=== PATIENT | female | born 1995 | race Caucasian/White ===

== ENCOUNTER 2019-04-03 12:29 | Outpatient (REF) | payer MEDICAID, SELFPAY ==
--- NOTE | 2019-04-03 10:05 | PAPFT_PTH ---
PATIENT: SHOBHA JUÁREZ LOC: [facility] U#:[id number] AGE/SX: 23/F ROOM: RE04/03/[address]: Salbador Herrera MD : [id number] BED: DIS: 04/03/2019 SPEC #: [id number] RECD: 04/03/19 13:02 STATUS: GODFREY ALFARO #: [id number] AAKASH: 04/03/19 10:[address]: Salbador Herrera DEPT: [facility] Cytology RECD BY: Columba Neumann ENTERED: 04/03/19 13:02 SP TYPE: PAPFT OT DR: None Tissues: 1 - CX/ENDOCX FOR PAP SMEARS Procedures: PAP THIN PREP/U[facility] Screening Comments: [id number] (CHLAMYDIA/GC)
[2019-04-06 15:47] LABS: Chlamydia Result Negative; GC Result Negative; Specimen Description SEE COMMENTS
== END 2019-04-03 12:49 ==
LOC: LBN 12:29
PROVIDERS: Visit Provider Obstetrics & Gynecology
DX: Z11.3 Encounter for screening for infections with a predominantly sexual mode of transmission (principal); Z12.4 Encounter for screening for malignant neoplasm of cervix; Z11.51 Encounter for screening for human papillomavirus (HPV)
CPT/HCPCS: 87491; 87591; 88142

== ENCOUNTER 2019-04-04 23:33 | Emergency (ER) | payer MEDICAID, SELFPAY ==
[2019-04-04 23:42] VITALS: BP 102/76; PULSE 77; RESP 18; TEMP 36.4; O2SAT 98
--- NOTE | 2019-04-05 00:01 | W.ED.GENAD ---
Discharge Plan Disposition Patient Disposition: HOME Condition: Good Discharge Details Chief Complaint: GenMedical Clinical Impression: Cellulitis of hand, right Primary Care Provider: None,None ED Provider: Raciel Felix Home Meds and New Rx's Prescriptions: New clindamycin HCl 150 mg capsule 450 mg PO TID 10 Days Qty: 90 RF: 0 acetaminophen [Mapap Extra Strength] 500 MG tablet 1,000 mg PO Q6H 5 Days Qty: 60 RF: 0 ibuprofen [Motrin IB] 200 MG tablet 600 mg PO Q6H 5 Days Qty: 60 RF: 0 No Action buprenorphine-naloxone [Suboxone] 4-1 mg Film 1 film SUBLINGUAL DAILY RF: 0 Discharge Instructions Instructions: Cellulitis (ED) Additional Instructions: At this time you do have mild cellulitis in your right hand, however you do not show the signs of sepsis or severe cellulitis requiring IV antibiotics. Please take the antibiotic as directed. Please make sure you are taking it with yogurt with live culture to prevent any diarrhea. Take the Tylenol and Motrin as directed for pain control. If you notice any worsening of your symptoms or any symptoms that we discussed concerning your fingers, or any new symptoms such as vomiting, diarrhea, fever, chills, shortness of breath, chest pain, numbness, weakness, or fainting , please return immediately to the emergency department for reevaluation. Please follow up with your primary care provider as soon as possible for reassessment and reevaluation. As always, it was a pleasure participating in your medical care today. Referrals: Evelina To [Emergency Nurse] - Medical Decision Making This is a pleasant 23-year-old female who presents today for evaluation of swelling, redness and mild warmth on her right hand. Primarily over the fifth digit in her right hand. She is left-hand dominant. She states that 2 years ago she had notable cellulitis and sepsis in her left hand, and although the symptoms are nowhere near that previous experience today, she states that she wants to take care of the symptoms early. Exam demonstrates no clinical evidence of flexor or extensor tenosynovitis in all 5 digits. No sausage shaped digits, no pain out of proportion. Signs and symptoms do appear consistent with mild cellulitis. She denies any recent IV or illicit drug use for the last 2 years. However because of her past I do feel that she does have risk factors for MRSA. Because of this we will start the patient on clindamycin, recommend Tylenol and Motrin, as well as close follow-up. She does not have a PCP here and so I did recommend that she come back in the next few days for reassessment and recheck. I have extensively reviewed the treatment plan and discharge instructions with the patient and their family. I have addressed all patient concerns at this time. The patient and family was made aware of what symptoms to monitor for that would warrant a return to the emergency department. Discussed the plan with the patient and family, they demonstrate verbal understanding and agreement with our assessment and plan at this time. HPI General Date/Time Provider Initiated Documentation: 04/04/19 23:35. HPI Narrative: This is a 23-year-old female who presents today for evaluation of pain and swelling in her right hand. She is left-hand dominant. Patient states that the swelling began roughly 24 to 48 hours ago. Is been associated with mild warmth and redness. She has mild pain in the hand, particularly over the fifth digit. She denies any fever. She has not taken any NSAIDs recently. She states that she did have cellulitis in her left hand 2 years ago, which did eventually require admission and IV antibiotics. She states that it is not as bad as that time, and she states that she wants to get it taken care of early. 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 She denies any recent IV or illicit drug use. Patient has no other complaints at this time. She denies any recent trauma. She has not been on any antibiotics recently. Related Data Home Medications Medication Instructions Recorded Confirmed buprenorphine-naloxone [Suboxone] 1 film SUBLINGUAL DAILY 04/04/19 04/04/19 acetaminophen [Mapap Extra 1,000 mg PO Q6H 5 Days #60 tab 04/05/19 Strength] clindamycin HCl 450 mg PO TID 10 Days #90 cap 04/05/19 ibuprofen [Motrin Ib] 600 mg PO Q6H 5 Days #60 tab 04/05/19 Previous Rx's Medication Instructions Recorded acetaminophen [Mapap Extra 1,000 mg PO Q6H 5 Days #60 tab 04/05/19 Strength] clindamycin HCl 450 mg PO TID 10 Days #90 cap 04/05/19 ibuprofen [Motrin Ib] 600 mg PO Q6H 5 Days #60 tab 04/05/19 Allergies Allergy/AdvReac Type Severity Reaction Status Date / Time No Known Allergies Allergy Verified 04/04/19 23:50 General Stated Complaint: GenMedical BRIAN: 3 Review of Systems All systems reviewed & are unremarkable except as noted in HPI and below PFSH Social History Smoking/Tobacco Use Status: Current every day Tobacco Type: cigarettes Tobacco: How many years used: 8 Quit status: not considering quitting Alcohol Intake: current Alcohol Intake frequency: holidays/special occasions only Drug use: Current Sobriety Substance use type: former substance user Details: no iv drugs in 2 years Do you feel safe at home: Yes Do you feel safe in your relationship?: Yes History History 5 Para 4 Hx # Term Pregnancies 4 Multiple births Hx # Pregnancies Ectopic pregnancies AB induced Hx Number of Living Children 4 AB spontaneous 1 Exam Narrative Exam Narrative: 1.Const: Well-nourished, Well-developed, appearing stated age 2.Eyes: PERRL, no conjunctival injection, and symmetrical lids. 3.ENT: Atraumatic external nose and ears. Moist MM. Neck: Symmetric, trachea midline, No thyromegaly. 4.CVS: +S1/S2, No murmurs or gallops. Peripheral pulses 2+ and equal in all extremities. Brisk capillary refill in all extremities. 5.RESP: Unlabored respiratory effort. Clear to auscultation bilaterally. No wheezes rales or rhonchi 6.GI: Soft, Nontender/Nondistended, No hepatosplenomegaly. No guarding or rebound. 7.MSK: Right hand: Patient's right and left hands are both mildly edematous which the patient states is chronic baseline for her that occurred after she was using her IV drugs in the past. Patient's right hand demonstrates mild swelling of the hand throughout, fairly equivalent with the left hand. There is mild redness around the dorsal aspect of the hand, primarily around the fifth digit. Minimal swelling but no evidence of sausage shaped digit. Minimal pain with movement of the fifth finger, but no pain out of proportion, no evidence of severe pain with passive or active flexion or extension of the 5 digits. Symptoms at this time are clinically inconsistent with flexor tenosynovitis or extensor tenosynovitis. Normal sensation throughout. Brisk capillary refill throughout. Left hand: Mildly edematous which the patient states is chronic baseline. No other significant abnormality. 8.Skin: Warm, Dry. No rashes or lesions. Please see musculoskeletal for description of skin 9.Neuro: applications analyst II-XII grossly intact. Sensation grossly intact, no focal neurologic deficits. 10.Psych: (AAO) x3. Appropriate mood and affect Course Vital Signs Vital signs: Vital Signs Temperature 36.4 C L 04/04/19 23:42 Pulse 77 04/04/19 23:42 Respiratory Rate 18 04/04/19 23:42 Blood Pressure 102/76 04/04/19 23:42 Pulse Oximetry 98 04/04/19 23:42 Temperature 36.4 C L 04/04/19 23:42 Temperature Source Skin 04/04/19 23:42 Pulse 77 04/04/19 23:42 Respiratory Rate 18 04/04/19 23:42 Respiratory Effort 04/04/19 23:56 Respiratory Depth Normal 04/04/19 23:56 Respiratory Pattern Normal 04/04/19 23:56 Blood Pressure 102/76 04/04/19 23:42 Blood Pressure Position Sitting 04/04/19 23:42 Pulse Oximetry 98 04/04/19 23:42 Oxygen Delivery Method Room Air 04/04/19 23:42 Oxygen Flow Rate 0 04/04/19 23:42 Pain Level 7 04/04/19 23:42
[2019-04-05] MEDS: Ibuprofen 800 MG TAB PO (00:17)
[2019-04-05] MEDS: Clindamycin 150 MG CAP 450 MG PO (00:17)
[2019-04-05] MEDS: Acetaminophen 500 MG TAB 1000 MG PO (00:18)
== END 2019-04-05 00:35 | disposition home or self-care (01) ==
PROVIDERS: Emergency Provider Student in an Organized Health Care Education/Training Program
DX: L03.113 Cellulitis of right upper limb (principal)
CPT/HCPCS: 99283

== ENCOUNTER 2019-04-09 06:59 | Outpatient (CLI) | payer MEDICAID, SELFPAY ==
--- NOTE | 2019-04-09 13:15 | DI.US_ITS ---
EXAM: US PELVIS AND TRANSVAGINAL CLINICAL HISTORY: Pelvic pain, R10.2 TECHNIQUE: Ultrasound performed using standard protocol. Pelvic ultrasound was performed transabdo minally and transvaginally. COMPARISON: No exams were available for comparison FINDINGS: Note is made of cholelithiasis. Limited scanning of the kidneys is unremarkable. Left ovary is nonvisualized. Right ovary has a normal follicular appearance. There is an apparent 19 millimeter in diameter left fundal uterine fibroid. There is trace fluid in the endometrial cavity and some small probable endometrial calcifications are noted. Minimal cul-de- sac fluid noted, probably physiologic. No other specific abnormality seen. IMPRESSION: Trace fluid in endometrial cavity, nonspecific. Minimal cul-de-sac fluid, probably physiologic. Probable small left fundal fibroid, less than 2 cm.
== END 2019-04-09 07:19 ==
PROVIDERS: Visit Provider Obstetrics & Gynecology
DX: R10.2 Pelvic and perineal pain (principal); D25.9 Leiomyoma of uterus, unspecified; K80.20 Calculus of gallbladder without cholecystitis without obstruction
CPT/HCPCS: 76830; 76856